=== PATIENT | male | born 1975 | race Caucasian/White ===

== ENCOUNTER 2021-04-15 11:14 | Emergency (ER) | payer SELFPAY ==
[~2021-04-15] VITALS: Ht 170.2 cm; Wt 90.7 kg
[2021-04-15 11:14] VITALS: BP 166/88
--- NOTE | 2021-04-15 11:14 | NUR ---
NATALIE FROM HOME, PT TO WAIT IN LOBBY
--- NOTE | 2021-04-15 12:05 | NUR ---
PT AMBULATED TO ER BED 5 WITH A STEADY GAIT.
--- NOTE | 2021-04-15 12:10 | NUR ---
PT AMBULATED TO BATHROOM, STEADY GAIT.
--- NOTE | 2021-04-15 12:55 | NUR ---
20 G IV ESTABLISHED TO L AC. BLOOD SAMPLES COLLECTED VIA IV AND HANDED TO NEW PATIENT ESCORT
--- NOTE | 2021-04-15 13:05 | NUR ---
ABDOMINAL CT WITH CONTRAST CONSENT OBTAINED BEDSIDE
--- NOTE | 2021-04-15 13:06 | NUR ---
PT CURRENTLY RESTING WITH EYES OPEN. BED IN LOWEST POSITION WITH SIDERAIL X1 UP. WARM BLANKET PROVIDED TO PT. VITAL SIGNS STABLE. WILL CONTINUE TO MONITOR
--- NOTE | 2021-04-15 13:11 | NUR ---
46 Y/O MALE BIBA FROM HOME C/O ABD PAIN R/T HIATAL HERNIA STARTING AT 0730 TODAY. PT STATES "HIS HERNIA WAS PROTRUDING THIS AM." PT STATES ITS PROTRUDING WHICH IS CAUSING HIM TO BE NAUSEOUS. PT STATES HE HAS EXPERINCED VOMITING/DIARRHEA. PMH:HIATAL HERNIA ALLERGIES:PCN
[2021-04-15 13:22] LABS: BASOPHILS % (AUTO) 0.2 % (0.0-2.0); EOSINOPHILS % (AUTO) 0.2 % (0.0-4.0); HEMATOCRIT 42.1 % (36-52); HEMOGLOBIN 13.9 g/dL (12.0-18.0); LYMPHOCYTES # (AUTO) 1.1 K/uL (2.0-11.5); LYMPHOCYTES % (AUTO) 8.1 % (20.5-51.1); MEAN CORPUSCULAR HEMOGLOBIN 28 pg (27-31); MEAN CORPUSCULAR HGB CONC 33 g/dL (33-37); MEAN CORPUSCULAR VOLUME 85.4 fL (80-94); MONOCYTES # (AUTO) 0.5 K/uL (0.8-1.0); MONOCYTES % (AUTO) 3.8 % (1.7-9.3); NEUTROPHILS # (AUTO) 11.8 K/uL (1.8-7.7); NEUTROPHILS % (AUTO) 87.7 % (42.2-75.2); PLATELET COUNT (AUTO) 220 K/uL (140-450); RED BLOOD CELL COUNT(AUTO) 4.92 MIL/uL (4.20-6.10); RED CELL DISTRIBUTION WIDTH 14.5 % (11.6-13.7); WHITE BLOOD COUNT (AUTO) 13.4 K/uL (4.8-10.8)
[2021-04-15 13:23] LABS: ALBUMIN 3.7 g/dL (3.4-5.0); ANION GAP 12.6 (8-16); CARBON DIOXIDE 27.5 mmol/L (21-32); CREATININE 1.5 mg/dL (0.6-1.3); POTASSIUM 4.1 mmol/L (3.5-5.1); TOTAL BILIRUBIN 0.3 mg/dL (0.0-1.0)
--- NOTE | 2021-04-15 13:49 | NUR ---
PT RETURNED TO BED [address] VIA W/C
[2021-04-15 15:04] VITALS: BP 151/95
--- NOTE | 2021-04-15 15:04 | NUR ---
PT DISCHARGED AND OFFERED BUS PASS, BUT REFUSED. PT STATED "HE DOESNT LIVE FAR AND WILL WALK HOME"
--- NOTE | 2021-04-15 15:04 | NUR ---
Patient discharged with v/s stable. Written and verbal after care instructions given and explained. Patient verbalized understanding. Ambulatory with steady gait. All questions addressed prior to discharge. Advised to follow up with PMD.
== END 2021-04-15 14:59 | disposition home or self-care (01) ==
LOC: MED 11:14
DX: K44.9 Diaphragmatic hernia without obstruction or gangrene (principal); Z88.0 Allergy status to penicillin
CPT/HCPCS: 36415; 74177; 80053; 83605; 83615; 83690; 85025; 99285; Q9967